=== PATIENT | male | born 1950 | race Hispanic/Latino ===

== ENCOUNTER 2018-08-02 16:30 | Emergency (ER) | payer OTHER, SELFPAY ==
--- NOTE | 2018-08-02 17:22 | RAD REPORT ---
EXAM DESCRIPTION: RAD - Wrist Right 3 View - 08/02/2018 5:11 pm CLINICAL HISTORY: Right wrist pain status post injury FINDINGS: Bony density along the dorsal aspect of the wrist has a sclerotic border and probably is c hronic. No acute fracture or dislocation seen. Calcification of the triangular fibrocartilage Multiple small radiopaque foreign bodies are present within predominantly the medial aspect of the wr ist. If the patient continues to have symptoms to suggest an occult fracture then a followup plain film se renee in 7 days would be recommended.
--- NOTE | 2018-08-02 17:32 | EDPHYS ---
Physician Documentation [facility] Name: Nick Delgado Age: 68 yrs Sex: Male : 1950 Arrival Date: 08/02/2018 Time: 16:33 Bed 30 Private MD: ED Physician Kameron Alvarenga HPI: 08/02 17:37 This 68 yrs old Male presents to ER via Ambulatory with complaints of Wrist snw Injury. 17:37 The patient or guardian reports a contusion, swelling, tenderness. The complaints snw affect the right wrist diffusely. Context: The problem was sustained at a [employer], resulted from a direct blow, by a heavy object, Lumber. Historical: - Allergies: 16:37 No Known Allergies; sv - PMHx: 16:37 None; sv - PSHx: 16:37 back; sv - Immunization history:: Adult Immunizations not up to date, Last tetanus immunization: unknown. - Social history:: Smoking status: unknown. - Ebola Screening: : Patient negative for fever greater than or equal to 101.5 degrees Fahrenheit, and additional compatible Ebola Virus Disease symptoms Patient denies exposure to infectious person Patient denies travel to an Ebola-affected area in the 21 days before illness onset. ROS: 17:33 Constitutional: Negative for fever, chills, and weight loss, Eyes: Negative for injury, snw pain, redness, and discharge, ENT: Negative for injury, pain, and discharge, Neck: Negative for injury, pain, and swelling, Cardiovascular: Negative for chest pain, palpitations, and edema, Respiratory: Negative for shortness of breath, cough, wheezing, and pleuritic chest pain, Abdomen/GI: Negative for abdominal pain, nausea, vomiting, diarrhea, and constipation, Back: Negative for injury and pain, : Negative for injury, bleeding, discharge, and swelling, Skin: Negative for injury, rash, and discoloration, Neuro: Negative for headache, weakness, numbness, tingling, and seizure. 17:33 MS/extremity: Positive for contusion, ecchymosis, pain, of the lateral right wrist. Exam: 17:35 Constitutional: This is a well developed, well nourished patient who is awake, alert, snw and in no acute distress. Head/Face: Normocephalic, atraumatic. Eyes: Pupils equal round and reactive to light, extra-ocular motions intact. Lids and lashes normal. Conjunctiva and sclera are non-icteric and not injected. Cornea within normal limits. Periorbital areas with no swelling, redness, or edema. ENT: Nares patent. No nasal discharge, no septal abnormalities noted. Tympanic membranes are normal and external auditory canals are clear. Oropharynx with no redness, swelling, or masses, exudates, or evidence of obstruction, uvula midline. Mucous membranes moist. Neck: Trachea midline, no thyromegaly or masses palpated, and no cervical lymphadenopathy. Supple, full range of motion without nuchal rigidity, or vertebral point tenderness. No Meningismus. Chest/axilla: Normal chest wall appearance and motion. Nontender with no deformity. No lesions are appreciated. Cardiovascular: Regular rate and rhythm with a normal S1 and S2. No gallops, murmurs, or rubs. Normal PMI, no JVD. No pulse deficits. Respiratory: Lungs have equal breath sounds bilaterally, clear to auscultation and percussion. No rales, rhonchi or wheezes noted. No increased work of breathing, no retractions or nasal flaring. Abdomen/GI: Soft, non-tender, with normal bowel sounds. No distension or tympany. No guarding or rebound. No evidence of tenderness throughout. Back: No spinal tenderness. No costovertebral tenderness. Full range of motion. Skin: Warm, dry with normal turgor. Normal color with no rashes, no lesions, and no evidence of cellulitis. Neuro: Awake and alert, GCS 15, oriented to person, place, time, and situation. Cranial nerves II-XII grossly intact. Motor strength 5/5 in all extremities. Sensory grossly intact. Cerebellar exam normal. Normal gait. Psych: Awake, alert, with orientation to person, place and time. Behavior, mood, and affect are within normal limits. 17:35 Musculoskeletal/extremity: Extremities: grossly normal except: noted in the lateral right wrist: contusion, ecchymosis, Circulation is intact in all extremities. Pulses: are normal with no appreciated deficits, Sensation intact. Vital Signs: 16:37 BP 132 / 89; Pulse 77; Resp 16; Temp 98.5; Pulse Ox 100% ; Weight 83.91 kg; Height 5 sv ft. 7 in. (170.18 cm); Pain 7/10; 16:37 Body Mass Index 28.97 (83.91 kg, 170.18 cm) sv MDM: 16:55 Patient medically screened. snw 17:33 Data reviewed: vital signs, nurses notes. Data interpreted: Pulse oximetry: on room air snw is 100 %. Interpretation: normal. Counseling: I had a detailed discussion with the patient and/or guardian regarding: the historical points, exam findings, and any diagnostic results supporting the discharge/admit diagnosis, the presence of at least one elevated blood pressure reading (>120/80) during this emergency department visit, the need for outpatient follow up, to return to the emergency department if symptoms worsen or persist or if there are any questions or concerns that arise at home. Special discussion: I have referred the patient to see his PCP for further evaluation of high blood pressure. Based on the history and exam findings, there is no indication for further emergent testing or inpatient evaluation. I discussed with the patient/guardian the need to see the orthopedic surgeon for further evaluation of the symptoms. I discussed with the patient/guardian the need to see the primary care provider for further evaluation of the symptoms. 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 Exp: rv 07/04/2020. Lot #: [id number]. } Route: IM; Site: right deltoid; 18:00 Follow up: Response: Medication administered at discharge. rv Disposition: 08/02/18 17:30 Discharged to Home. Impression: Pain in right wrist, Contusion of right wrist. - Condition is Stable. - Discharge Instructions: Musculoskeletal Pain, Wrist Pain, VIS, Tetanus, Diphtheria (Td) - CDC, Cryotherapy, Heat Therapy. - Prescriptions for Diclofenac Sodium 75 mg Oral Tablet Sustained Release - take 1 tablet by ORAL route 2 times per day; 30 tablet. - Medication Reconciliation Form, Thank You Letter, Antibiotic Education, Prescription Opioid Use form. - Follow up: Private Physician; When: 2 - 3 days; Reason: Recheck today's complaints, Continuance of care, Re-evaluation by your physician. Follow up: Emergency Department; When: As needed; Reason: Worsening of condition. Addendum: 08/05/2018 07:12 Co-signature as Attending Physician, Kameron Alvarenga MD I agree with the assessment and c romo plan of care. Signatures: Dispatcher [employer] Dinorah Alanis, RN RN Kameron Berry MD MD cha Therrien, Shelly, B2B ACCOUNT EXECUTIVE-C B2B ACCOUNT EXECUTIVE-Csnw Jostin Ch, RN RN rv Corrections: (The following items were deleted from the chart) 08/02 17:39 17:37 Context: The problem was sustained at a [employer], resulted from a direct blow, snw by a heavy object, Lumbar, snw 18:03 17:30 08/02/2018 17:30 Discharged to Home. Impression: Pain in right wrist; Contusion rv of right wrist. Condition is Stable. Forms are Medication Reconciliation Form, Thank You Letter, Antibiotic Education, Prescription Opioid Use. Follow up: Private Physician; When: 2 - 3 days; Reason: Recheck today's complaints, Continuance of care, Re-evaluation by your physician. Follow up: Emergency Department; When: As needed; Reason: Worsening of condition. snw
--- NOTE | 2018-08-02 17:32 | ER ---
Nurse's Notes [facility] Name: Nick Delgado Age: 68 yrs Sex: Male : 1950 Arrival Date: 08/02/2018 Time: 16:33 Bed 30 Private MD: Diagnosis: Pain in right wrist;Contusion of right wrist Presentation: 08/02 16:35 Presenting complaint: Patient states: right wrist pain x 1 day. Reports that a 2x2 sv piece of wood "snapped and banged on my right wrist." Pt has a dark purple bruise noted to that area. Transition of care: patient was not received from another setting of care. Onset of symptoms was August 01, 2018. Care prior to arrival: None. 16:35 Method Of Arrival: Ambulatory sv 16:35 Acuity: KYLER 4 sv 18:03 Risk Assessment: Do you want to hurt yourself or someone else? Patient reports no rv desire to harm self or others. Initial Sepsis Screen: Does the patient meet any 2 criteria? No. Patient's initial sepsis screen is negative. Does the patient have a suspected source of infection? No. Patient's initial sepsis screen is negative. Triage Assessment: 16:38 General: Appears in no apparent distress. comfortable, Behavior is calm, cooperative, sv appropriate for age. Pain: Complains of pain in right wrist. Neuro: Level of Consciousness is awake, alert, obeys commands, Oriented to person, place, time, situation, Gait is steady. Respiratory: Respiratory effort is even, unlabored, Respiratory pattern is regular, symmetrical. Historical: - Allergies: 16:37 No Known Allergies; sv - PMHx: 16:37 None; sv - PSHx: 16:37 back; sv - Immunization history:: Adult Immunizations not up to date, Last tetanus immunization: unknown. - Social history:: Smoking status: unknown. - Ebola Screening: : Patient negative for fever greater than or equal to 101.5 degrees Fahrenheit, and additional compatible Ebola Virus Disease symptoms Patient denies exposure to infectious person Patient denies travel to an Ebola-affected area in the 21 days before illness onset. Screenin:02 Abuse screen: Denies threats or abuse. Denies injuries from another. Nutritional rv screening: No deficits noted. Tuberculosis screening: No symptoms or risk factors identified. Fall Risk None identified. Assessment: 18:01 General: Appears in no apparent distress. comfortable, Behavior is calm, cooperative. rv Pain: Complains of pain in right wrist. Neuro: Level of Consciousness is awake, alert, obeys commands, Oriented to person, place, time, situation. Cardiovascular: Capillary refill < 3 seconds. Respiratory: Airway is patent. GI: No signs and/or symptoms were reported involving the gastrointestinal system. : No signs and/or symptoms were reported regarding the genitourinary system. EENT: No signs and/or symptoms were reported regarding the EENT system. Derm: Wound noted right wrist. Musculoskeletal: Reports pain in right wrist. Vital Signs: 16:37 BP 132 / 89; Pulse 77; Resp 16; Temp 98.5; Pulse Ox 100% ; Weight 83.91 kg; Height 5 sv ft. 7 in. (170.18 cm); Pain 7/10; 16:37 Body Mass Index 28.97 (83.91 kg, 170.18 cm) sv ED Course: 16:33 Patient arrived in ED. mr 16:37 Triage completed. sv 16:38 Arm band placed on. sv 16:55 Macy Nguyen FNP-C is PHCP. snw 16:55 Kameron Alvarenga MD is Attending Physician. snw 16:57 X-ray completed. Portable x-ray completed in exam room. Patient tolerated procedure ml well. 16:58 Wrist Right 3 View XRAY In Process Unspecified. EDMS 18:02 No provider procedures requiring assistance completed. Patient did not have IV access rv during this emergency room visit. 18:03 Patient has correct armband on for positive identification. Bed in low position. Call rv light in reach. Side rails up X 1. Pulse ox on. NIBP on. 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 Exp: rv 07/04/2020. Lot #: [id number]. } Route: IM; Site: right deltoid; 18:00 Follow up: Response: Medication administered at discharge. rv Outcome: 17:30 Discharge ordered by . snw 18:02 Discharged to home ambulatory. rv 18:02 Condition: good 18:02 Discharge instructions given to patient, Instructed on discharge instructions, follow up and referral plans. medication usage, Demonstrated understanding of instructions, follow-up care, medications, Prescriptions given X 1. 18:03 Patient left the ED. rv Signatures: Dispatcher [employer] Dinorah Aalnis RN RN sv Macy Nguyen, DAIRY HUSBANDRY WORKER-C DAIRY HUSBANDRY WORKER-Naomiw Fay Bear Tre, Jostin Johnson RN RN rv Corrections: (The following items were deleted from the chart) 16:39 16:37 Pulse 77bpm; Resp 16bpm; Pulse Ox 100%; Temp 98.5F; 83.91 kg; Height 5 ft. 7 in.; sv BMI: 28.9; Pain 7/10; sv
[2018-08-02] MEDS ORDERED: TETANUS & DIPHTHERIA TOX,ADULT 0.5 ML VIAL ONE (17:36)
== END 2018-08-02 18:03 | disposition home or self-care (01) ==
LOC: ER 16:30
DX: S60.211A Contusion of right wrist, initial encounter (principal); W22.8XXA Striking against or struck by other objects, initial encounter; Y92.512 Supermarket, store or market as the place of occurrence of the external cause
CPT/HCPCS: 90714; 99284

== ENCOUNTER 2020-11-14 08:33 | Emergency (ER) | payer MEDICARE, SELFPAY ==
[2020-11-14] MEDS ORDERED: HYDROCODONE/APAP 5/325 MG TAB ONE (09:35)
--- NOTE | 2020-11-14 09:45 | ER ---
Nurse's Notes [facility] Name: Nick Delgado Age: 70 yrs Sex: Male : 1950 Arrival Date: 11/14/2020 Time: 08:37 Bed 20 Private MD: Stan Moody T Diagnosis: Displaced fracture of shaft of left fibula Presentation: 11/14 08:56 Chief complaint: Patient states: Tripped at work and hurt is left leg and left ankle. rb3 08:56 Coronavirus screen: At this time, the client does not indicate any symptoms associated rb3 with coronavirus-19. Ebola Screen: Patient denies travel to an Ebola-affected area in the 21 days before illness onset. Initial Sepsis Screen: Does the patient meet any 2 criteria? No. Patient's initial sepsis screen is negative. Does the patient have a suspected source of infection? No. Patient's initial sepsis screen is negative. Risk Assessment: Do you want to hurt yourself or someone else? Patient reports no desire to harm self or others. Onset of symptoms was November 10, 2020. 08:56 Method Of Arrival: Wheelchair rb3 08:56 Acuity: KYLER 3 rb3 Triage Assessment: 08:56 General: Appears uncomfortable, Behavior is calm, cooperative. Pain: Complains of pain rb3 in lateral aspect of left calf Pain currently is 10 out of 10 on a pain scale. Pain began 3-4 days ago Aggravated by weight bearing. Neuro: Level of Consciousness is awake, alert, obeys commands, Oriented to person, place, time, situation. Cardiovascular: Patient's skin is warm and dry. Pulses are palpable in left foot. Respiratory: Airway is patent Respiratory effort is even, unlabored, Respiratory pattern is regular, symmetrical. GI: No signs and/or symptoms were reported involving the gastrointestinal system. : No signs and/or symptoms were reported regarding the genitourinary system. Musculoskeletal: Swelling present in left ankle. Historical: - Allergies: 08:56 No Known Allergies; rb3 - Home Meds: 08:56 unknown BP med [Active]; rb3 - PMHx: 08:56 Hypertension; rb3 - PSHx: 08:56 back; Appendectomy; rb3 - Immunization history:: Adult Immunizations up to date. - Social history:: Smoking status: Patient/guardian denies using. Screenin:56 Abuse screen: Denies threats or abuse. Nutritional screening: No deficits noted. rb3 Tuberculosis screening: No symptoms or risk factors identified. Fall Risk None identified. Assessment: 08:56 General: See triage assessment. rb3 09:55 Reassessment: Patient appears in no apparent distress at this time. Patient and/or rb3 family updated on plan of care and expected duration. Pain level reassessed. Patient is alert, oriented x 3, equal unlabored respirations, skin warm/dry/pink. 10:38 Reassessment: Patient appears in no apparent distress at this time. No changes from rb3 previously documented assessment. Vital Signs: 08:56 BP 175 / 93; Pulse 74; Resp 19; Temp 98.9; Pulse Ox 100% ; Weight 74.84 kg; Height 5 rb3 ft. 7 in. (170.18 cm); Pain 10/10; 10:38 BP 155 / 88; Pulse 71; Resp 19; Pulse Ox 99% ; rb3 08:56 Body Mass Index 25.84 (74.84 kg, 170.18 cm) rb3 ED Course: 08:37 Patient arrived in ED. am2 08:37 Stan Moody MD is Private Physician. am2 08:56 Bria Nash, RN is Primary Nurse. rb3 08:56 Arm band placed on right wrist. rb3 08:56 Patient has correct armband on for positive identification. Bed in low position. Call rb3 light in reach. Side rails up X 1. Pulse ox on. NIBP on. 08:58 Cally Baum FNP-C is [facility]. kb 08:58 Kameron Alvarenga MD is Attending Physician. kb 09:06 Triage completed. rb3 09:39 Tib Fib Left XRAY In Process Unspecified. EDMS 10:31 Orthoglass splint: Posterior short lleg splint applied on left leg. capillary refill <3 dh3 seconds. Viewed by Bailey Baum NP. 10:47 No provider procedures requiring assistance completed. Patient did not have IV access rb3 during this emergency room visit. Administered Medications: 09:15 Drug: [place] (HYDROcodone-acetaminophen) 5 mg-325 mg 1 tabs Route: PO; rb3 09:45 Follow up: Response: No adverse reaction; Pain is decreased rb3 Outcome: 09:44 Discharge ordered by . kb 10:47 Patient left the ED. iw 10:47 Discharged to home via wheelchair, with crutches, with family. rb3 10:47 Condition: stable 10:47 Discharge instructions given to patient, Instructed on discharge instructions, follow rb3 up and referral plans. medication usage, Demonstrated understanding of instructions, follow-up care, medications, Prescriptions given X 1. Signatures: Dispatcher [employer] EDCally Blackwood, TOBACCO WAREHOUSE AGENT-C TOBACCO WAREHOUSE AGENT-Maria Elena Wallace, RN RN iw Anika Quintanilla Deanna 3 Bria Nash, RN RN rb3
--- NOTE | 2020-11-14 09:45 | EDPHYS ---
Physician Documentation [facility] Name: Nick Delgado Age: 70 yrs Sex: Male : 1950 Arrival Date: 11/14/2020 Time: 08:37 Bed 20 Private MD: Stan Moody T ED Physician Kameron Alvarenga HPI: 11/14 09:03 This 70 yrs old Male presents to ER via Unassigned with complaints of Leg Pain.kb 09:03 The patient presents with pain, that is acute, swelling, tenderness. The complaints kb affect the lateral aspect of left calf. Context: The problem was sustained at work, resulted from the patient falling, the patient can fully bear weight, the patient is able to ambulate, Problem is a result from a previous injury: No. Onset: The symptoms/episode began/occurred 3 day(s) ago. Modifying factors: The symptoms are alleviated by nothing. the symptoms are aggravated by movement. Associated signs and symptoms: Pertinent positives: swelling, Pertinent negatives calf tenderness, fever, nausea, numbness, rash, tingling, vomiting, warmth, weakness. Treatment prior to arrival includes: no previous treatment. Severity of symptoms: At their worst the symptoms were mild, moderate, in the emergency department the symptoms are unchanged. The patient has not experienced similar symptoms in the past. The patient has not recently seen a physician. Pt reports he fell at work 3-4 days ago and hit his left lateral lower leg on a piece of furniture. States he has been able to walk, but is still having pain to the area he hit. States pain worse with flexion of foot. Cap refill and pulses wnl. . Historical: - Allergies: 08:56 No Known Allergies; rb3 - Home Meds: 08:56 unknown BP med [Active]; rb3 - PMHx: 08:56 Hypertension; rb3 - PSHx: 08:56 back; Appendectomy; rb3 - Immunization history:: Adult Immunizations up to date. - Social history:: Smoking status: Patient/guardian denies using. ROS: 09:40 Constitutional: Negative for fever, chills, and weight loss, Respiratory: Negative for kb shortness of breath, cough, wheezing, and pleuritic chest pain, Skin: Negative for injury, rash, and discoloration, Neuro: Negative for headache, weakness, numbness, tingling, and seizure. 09:40 MS/extremity: Positive for pain, swelling, tenderness, of the lateral aspect of left calf, Negative for abrasion, bite, contusion, decreased range of motion, deformity, ecchymosis, erythema, laceration, paresthesias, puncture, rash, tingling, warmth. Exam: 09:40 Constitutional: This is a well developed, well nourished patient who is awake, alert, kb and in no acute distress. Head/Face: Normocephalic, atraumatic. ENT: Moist Mucous membranes Respiratory: Respirations even and unlabored. No increased work of breathing, no retractions or nasal flaring. Skin: Warm, dry with normal turgor. Normal color. Neuro: Awake and alert, GCS 15, oriented to person, place, time, and situation. Moves all extremities. Normal gait. Psych: Awake, alert, with orientation to person, place and time. Behavior, mood, and affect are within normal limits. 09:40 Musculoskeletal/extremity: Extremities: grossly normal except: noted in the lateral aspect of left calf: pain, swelling, tenderness, ROM: intact in all extremities, Circulation is intact in all extremities. Sensation intact. Weight bearing: able to fully bear weight. Vital Signs: 08:56 BP 175 / 93; Pulse 74; Resp 19; Temp 98.9; Pulse Ox 100% ; Weight 74.84 kg; Height 5 rb3 ft. 7 in. (170.18 cm); Pain 10/10; 10:38 BP 155 / 88; Pulse 71; Resp 19; Pulse Ox 99% ; rb3 08:56 Body Mass Index 25.84 (74.84 kg, 170.18 cm) rb3 MDM: 09:02 Patient medically screened. [facility] 09:03 Data reviewed: vital signs, nurses notes. Data interpreted: Pulse oximetry: on room air kb is 100 %. Interpretation: normal. 09:38 Counseling: I had a detailed discussion with the patient and/or guardian regarding: the kb historical points, exam findings, and any diagnostic results supporting the discharge/admit diagnosis, radiology results, the need for outpatient follow up, a orthopedic surgeon, to return to the emergency department if symptoms worsen or persist or if there are any questions or concerns that arise at home. 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 No prescription history. kb 11/14 09:02 Order name: Tib Fib Left XRAY kb 11/14 09:38 Order name: Short Leg Splint; Complete Time: 10:32 kb 11/14 09:38 Order name: Crutches; Complete Time: 10:32 kb Administered Medications: 09:15 Drug: [place] (HYDROcodone-acetaminophen) 5 mg-325 mg 1 tabs Route: PO; rb3 09:45 Follow up: Response: No adverse reaction; Pain is decreased rb3 Disposition: 11/14/20 09:44 Discharged to Home. Impression: Displaced fracture of shaft of left fibula. - Condition is Stable. - Discharge Instructions: Fibular Ankle Fracture Treated With or Without Immobilization, Adult, Displaced Fibular Ankle Fracture Treated With Open Reduction, Adult. - Prescriptions for Tramadol 50 mg Oral Tablet - take 1 tablet by ORAL route every 8 hours as needed; 12 tablet. - Medication Reconciliation Form, Thank You Letter, Antibiotic Education, Prescription Opioid Use form. - Follow up: Private Physician; When: 2 - 3 days; Reason: Recheck today's complaints, Continuance of care, Re-evaluation by your physician. Follow up: Emergency Department; When: As needed; Reason: Worsening of condition. Signatures: Dispatcher [employer] EDMD Cally Baum, SUPERVISOR WATERWORKS-C SUPERVISOR WATERWORKS-Ckb Kameron Alvarenga MD MD cha Williams, Irene, RN RN Bria Key RN RN rb3 Corrections: (The following items were deleted from the chart) 10:16 09:14 Extremity Venous [email or web address] ordered. [facility] EDMD 10:47 09:44 11/14/2020 09:44 Discharged to Home. Impression: Displaced fracture of shaft of iw left fibula. Condition is Stable. Forms are Medication Reconciliation Form, Thank You Letter, Antibiotic Education, Prescription Opioid Use. Follow up: Private Physician; When: 2 - 3 days; Reason: Recheck today's complaints, Continuance of care, Re-evaluation by your physician. Follow up: Emergency Department; When: As needed; Reason: Worsening of condition. kb
[2020-11-14 10:53] VITALS: BP 175/93; TEMP 98.9; O2SAT 100
--- NOTE | 2020-11-14 11:18 | RAD REPORT ---
EXAM DESCRIPTION: Laly Haines Left11/14/2020 9:39 am CLINICAL HISTORY: Left leg pain status post injury FINDINGS: A mildly displaced fracture involves the proximal diaphysis of the fibula. Cortical irregularity and lucency involves the distal proximal tibia extending intraarticularly presu mably a fracture. Chondrocalcinosis is present
== END 2020-11-14 10:47 | disposition home or self-care (01) ==
LOC: ER 08:33
PROC: 2W3RX1Z Immobilization of Left Lower Leg using Splint (ICD-10-PCS; principal; 2020-11-14)
DX: S82.402A Unspecified fracture of shaft of left fibula, initial encounter for closed fracture (principal); I10 Essential (primary) hypertension; W01.190A Fall on same level from slipping, tripping and stumbling with subsequent striking against furniture, initial encounter; Y99.0 Civilian activity done for income or pay
CPT/HCPCS: 99284

== ENCOUNTER 2021-08-30 15:56 | Emergency (ER) | payer MEDICARE, SELFPAY ==
--- OUTSIDE RECORDS SUMMARY | 2021-08-30 15:59 | XMS REPORT | Continuity of Care Document ---
:[address] [facility] [place] [place] Address [address] [place] [address] Care Team Providers Name Role Phone ISABELLA VELEZ Primary Care Physician Unavailable Hossein DELUNA L Attending Clinician Etienne KELLER Attending Clinician Unavailable Arianna AUSTIN, S Attending Clinician Valerie CATALAN Attending Clinician Unavailable Abi GUZMAN Attending Clinician Unavailable Payers Payer Name Policy Type Policy Number Effective Date Expiration Date S [employer] [id number] 2021 (MEDICARE 00:00:00 REPLACEMENT HMO) Problems Condition Condition Condition Status Onset Resolution Last Treating Co mments Source Name Details Category Date Date Treatment Clinician Date No known No known Disease Unive rs active active ity of problems problems [facility] Allergies, Adverse Reactions, Alerts Allergy Allergy Status Severity Reaction(s) Onset Inactive Treating Comm ents Source Name Type Date Date Clinician NO KNOWN Drug Active Univers ALLERGIE Class ity of S [facility] Social History Social Habit Start Date Stop Date Quantity Comments Source History SDOH University o f Alcohol Frequency [place] [facility] History SDOH University o f Alcohol Std [place] Medical Drinks Branch History SDOH University o f Alcohol Binge [place] [facility] al Branch Exposure to Not sure University of SARS-CoV-2 [facility] (event) Branch Alcohol intake 2021-02-17 2021-02-17 Current drinker Unive rsity of 00:00:00 00:00:00 of alcohol [facility] (finding) Branch Tobacco use and 2020-11-25 2020-11-25 Never used Universit y of exposure 00:00:00 00:00:00 [facility] Alcohol Comment 2020-11-25 2020-11-25 socially Universit y of 00:00:00 00:00:00 [facility] Sex Ass[birth year] [facility] y of 00:00:00 00:00:00 [facility] Smoking Status Start Date Stop Date Source Never smoker [facility] Medications Ordered Filled Start Stop Current Ordering Indication Dosage Frequency Signature Comments Components Source Medication Medication Date Date Medication? Clinician (SIG) Name Name cyclobenzap Yes TAKE 1 Univ ers rine 10 mg 7-01 TABLET BY ity of tablet 00:00: MOUTH AT [place] [address] BEDTIME Medical NEEDED Branch etodolac Yes 400mg Take 400 Univ ers 400 mg 7-01 mg by ity of tablet 00:00: mouth 2 [place] (two) Medical times Branch daily with meals. cyclobenzap Yes TAKE 1 Univ ers rine 10 mg 7-01 TABLET BY ity of tablet 00:00: MOUTH AT [place] BEDTIME Medical NEEDED Branch etodolac Yes 400mg Take 400 Univ ers 400 mg 7-01 mg by ity of tablet 00:00: mouth 2 [place] (two) Medical times Branch daily with meals. traMADoL 50 Yes TAKE 1 Univ ers mg tablet 6-27 TABLET BY ity o f 00:00: MOUTH 00 EVERY 8 Medical HOURS Branch NEEDED traMADoL 50 Yes TAKE 1 Univ ers mg tablet 6-27 TABLET BY ity o f 00:00: MOUTH [place] EVERY 8 Medical HOURS Branch NEEDED tadalafiL Yes TAKE ONE Univ ers 20 mg 6-11 (1) ity of tablet 00:00: TABLET(S) 00 BY MOUTH Medical ONCE A DAY Branch NEEDED. tadalafiL Yes TAKE ONE Univ ers 20 mg 6-11 (1) ity of tablet 00:00: TABLET(S) BY MOUTH Medical ONCE A DAY Branch NEEDED. amLODIPine Yes 5mg Take 5 mg Un jeison 5 mg tablet 4-28 by mouth ity of 00:00: every [place] 00 morning. Medical Branch lisinopriL- Yes 1{tbl} Take 1 Un jesion hydrochloro 4-28 tablet by ity of thiazide 00:00: mouth [place] 20-12.5 mg 00 every Medical per tablet morning. [facility] rosuvastati 0 Yes 5mg Take 5 mg U nivers n 5 mg 4-28 by mouth ity of tablet 00:00: every [place] 00 evening. Medical Branch amLODIPine 0 Yes 5mg Take 5 mg Un jeison 5 mg tablet 4-28 by mouth ity of 00:00: every [place] 00 morning. Medical Branch lisinopriL- 0 Yes 1{tbl} Take 1 Un jeison hydrochloro 4-28 tablet by ity of thiazide 00:00: mouth [place] 20-12.5 mg 00 every Medical per tablet morning. [facility] rosuvastati 0 Yes 5mg Take 5 mg U nivers n 5 mg 4-28 by mouth ity of tablet 00:00: every [place] 00 evening. Medical Branch metFORMIN 0 Yes 500mg Take 500 Uni vers 500 mg 4-19 mg by ity of tablet 00:00: mouth 00 daily. Medical Branch pravastatin 0 Yes 20mg Take 20 mg Univers 20 mg 4-19 by mouth ity of tablet 00:00: daily. Medical Branch metFORMIN 0 Yes 500mg Take 500 Uni vers 500 mg 4-19 mg by ity of tablet 00:00: mouth 00 daily. Medical Branch pravastatin 0 Yes 20mg Take 20 mg Univers 20 mg 4-19 by mouth ity of tablet 00:00: daily. Medical [place] Immunizations Ordered Filled Immunization Date Status Comments [facility] e Immunization Name Name SARS-COV-2 COVID-19 2020-08-15 Completed Unive rsity of MODERNA VACCINE 00:00:00 [facility] SARS-COV-2 COVID-19 2020-08-15 Completed Unive rsity of MODERNA VACCINE 00:00:00 [facility] SARS-COV-2 COVID-19 2020-07-18 Completed Unive rsity of MODERNA VACCINE 00:00:00 [facility] SARS-COV-2 COVID-19 2020-07-18 Completed Unive rsity of MODERNA VACCINE 00:00:00 [facility] Vital Signs Vital Name Observation Time Observation Value Comments Source Systolic blood 2021-02-17 14:19:00 158 mm[Hg] [facility] [place] Diastolic blood 2021-02-17 14:19:00 81 mm[Hg] [facility] Heart rate 2021-02-17 14:19:00 68 /min [facility] Body height 2021-02-17 14:19:00 170.2 cm [facility] Body weight 2021-02-17 14:19:00 77.111 kg [facility] BMI 2021-02-17 14:19:00 26.63 kg/m2 [facility] Procedures Procedure Date / Time Performed Performing Clinician Sourc e XR TIBIA FIBULA 2 VW 2021-02-17 14:29:56 Tamia Catalan [facility] Encounters Start End Encounter Admission Attending Care Care Encounter Source Date/Time Date/Time Type Type Clinicians Facility Department ID 2021-06-28 2021-06-28 Outpatient [facility] [id number] [facility] 08:00:00 08:00:00 [id number] [facility] l [facility] 2021-04-03 2021-04-03 Outpatient [facility] [id number] [facility] 12:00:00 12:00:00 [id number] Medica l Group 2021-02-17 2021-02-17 [facility] [id number] Univers 09:15:00 23:59:00 Encounter Tamia Padilla [facility] [id number] [facility] [id number] Toney as Ney?Blea [id number] [facility] [address] [place] [facility] 2021-02-17 2021-02-17 Outpatient Tiana KELLER [facility] [id number] Univers 09:30:00 09:30:00 ALBERT [id number] [facility] [place] [facility] 2021-02-17 2021-02-17 Outpatient Tiana KELLER [facility] [id number] Univers 09:30:00 09:30:00 ALBERT [facility] 2021-02-17 2021-02-17 [facility] [id number] Univers 09:11:31 09:26:31 Visit [facility] [id number] it y of [place] [id number] Toney as Ney?Blea [id number] [facility] [address] Medical Office Building 2021-01-06 2021-01-06 Outpatient Tiana CATALAN [facility] [id number] Univers 10:15:00 23:59:00 TAMIA [facility] 2021-01-06 2021-01-06 [facility] [id number] Univers 10:15:00 10:15:00 ALBERT [id number] [facility] 2020-11-25 2020-11-25 Outpatient ARIANNA [facility] [id number] Univers 14:08:07 23:59:00 [facility] 2020-11-25 2020-11-25 Outpatient Tiana KELLER [facility] [id number] Univers 14:00:00 14:00:00 [facility] 2020-08-15 2020-08-15 Outpatient Tiana GUZMAN [facility] [id number] Univers 12:00:00 12:00:00 NICHELLE [facility] 2020-07-18 2020-07-18 Outpatient Tiana GUZMAN [facility] [id number] Univers 11:45:00 11:45:00 [facility] Results This patient has no known results.
[2021-08-30 16:33] LABS: Absolute Lymphocytes (CBC) 1.1 K/uL (0.7-4.9); Hematocrit 44.6 % (39.6-49.0); Lymphocytes % 21.7 % (15.3-44.8); MPV 7.5 fL (7.6-11.3); RBC Red Blood Cell Count 5.38 M/uL (4.33-5.43)
[2021-08-30 16:39] LABS: Protime INR 0.95
[2021-08-30] MEDS ORDERED: LEVETIRACETAM 500 MG/5 ML VIAL IV ONE (16:48)
[2021-08-30] MEDS ORDERED: NA CHLORIDE 0.9% 50 ML ONE (16:49)
--- NOTE | 2021-08-30 16:49 | EDPHYS ---
Physician Documentation [facility] Name: Nick Delgado Age: 71 yrs Sex: Male : 1950 Arrival Date: 08/30/2021 Time: 15:57 Bed 2 Private MD: ED Physician Kameron Alvarenga HPI: 08/30 16:18 This 71 yrs old Male presents to ER via EMS with complaints of Fall Injury, gareth Trauma Complaint. Historical: - Allergies: 16:06 No Known Allergies; ss - PMHx: 16:06 Hypertension; ss - Immunization history:: Client reports receiving the 2nd dose of the Covid vaccine. - Social history:: Smoking status: Patient denies any tobacco usage or history of. - Immunization history: Last tetanus immunization: unknown. ROS: 16:20 Constitutional: Negative for fever, chills, and weight loss, ENT: Negative for injury, gareth pain, and discharge, Neck: Negative for injury, pain, and swelling, Cardiovascular: Negative for chest pain, palpitations, and edema, Respiratory: Negative for shortness of breath, cough, wheezing, and pleuritic chest pain, Abdomen/GI: Negative for abdominal pain, nausea, vomiting, diarrhea, and constipation, Back: Negative for injury and pain, : Negative for injury, bleeding, discharge, and swelling, Neuro: Negative for headache, weakness, numbness, tingling, and seizure, Psych: Negative for depression, anxiety, suicide ideation, homicidal ideation, and hallucinations, Allergy/Immunology: Negative for hives, rash, and allergies, Endocrine: Negative for neck swelling, polydipsia, polyuria, polyphagia, and marked weight changes, Hematologic/Lymphatic: Negative for swollen nodes, abnormal bleeding, and unusual bruising. 16:20 Eyes: Positive for injury or acute deformity, pain, swelling. 16:20 MS/extremity: Positive for decreased range of motion, pain, swelling, tenderness, of the dorsum of right hand. Exam: 16:20 Constitutional: This is a well developed, well nourished patient who is awake, alert, gareth and in no acute distress. Eyes: Pupils equal round and reactive to light, extra-ocular motions intact. Lids and lashes normal. Conjunctiva and sclera are non-icteric and not injected. Cornea within normal limits. Periorbital areas with no swelling, redness, or edema. ENT: Nares patent. No nasal discharge, no septal abnormalities noted. Tympanic membranes are normal and external auditory canals are clear. Oropharynx with no redness, swelling, or masses, exudates, or evidence of obstruction, uvula midline. Mucous membranes moist. Neck: Trachea midline, no thyromegaly or masses palpated, and no cervical lymphadenopathy. Supple, full range of motion without nuchal rigidity, or vertebral point tenderness. No Meningismus. Chest/axilla: Normal chest wall appearance and motion. Nontender with no deformity. No lesions are appreciated. Cardiovascular: Regular rate and rhythm with a normal S1 and S2. No gallops, murmurs, or rubs. Normal PMI, no JVD. No pulse deficits. Respiratory: Lungs have equal breath sounds bilaterally, clear to auscultation and percussion. No rales, rhonchi or wheezes noted. No increased work of breathing, no retractions or nasal flaring. Abdomen/GI: Soft, non-tender, with normal bowel sounds. No distension or tympany. No guarding or rebound. No evidence of tenderness throughout. Back: No spinal tenderness. No costovertebral tenderness. Full range of motion. Male : Normal genitalia with no discharge or lesions. Psych: Awake, alert, with orientation to person, place and time. Behavior, mood, and affect are within normal limits. 16:20 Head/face: Noted is contusion, deformity, ecchymosis, erythema, a laceration(s), swelling, that is moderate, of the forehead and right eye, Sinus tenderness, is not appreciated. 17:55 ECG was reviewed by the Attending Physician. [facility] Vital Signs: 15:49 Resp 17; Weight 79.38 kg; Height 5 ft. 7 in. (170.18 cm); Pain 0/10; ss 15:49 BP 201 / 96; Pulse 78; Resp 15; Temp 98.1; Pulse Ox 98% ; jl7 16:45 BP 214 / 103; Pulse 75; Resp 16 S; Pulse Ox 99% on R/A; jl7 17:30 BP 180 / 90; Pulse 72; Resp 15; Pulse Ox 97% ; jl7 18:10 BP 170 / 96; Pulse 70; Resp 15; Pulse Ox 98% ; jl7 15:49 Body Mass Index 27.41 (79.38 kg, 170.18 cm) ss Job Coma Score: 15:49 Eye Response: spontaneous(4). Verbal Response: oriented(5). Motor Response: obeys ss commands(6). Total: 15. 16:45 Eye Response: spontaneous(4). Verbal Response: oriented(5). Motor Response: obeys jl7 commands(6). Total: 15. 17:30 Eye Response: spontaneous(4). Verbal Response: oriented(5). Motor Response: obeys jl7 commands(6). Total: 15. 18:10 Eye Response: spontaneous(4). Verbal Response: oriented(5). Motor Response: obeys jl7 commands(6). Total: 15. Trauma Score (Adult): 15:49 Eye Response: spontaneous(1); Verbal Response: oriented(1); Motor Response: obeys ss commands(2); Systolic BP: > 89 mm Hg(4); Respiratory Rate: 10 to 29 per min(4); Harper Score: 15; Trauma Score: 12 17:07 Eye Response: spontaneous(1); Verbal Response: oriented(1); Motor Response: obeys jd3 commands(2); Systolic BP: > 89 mm Hg(4); Respiratory Rate: 10 to 29 per min(4); Job Score: 15; Trauma Score: 12 MDM: 16:01 Patient medically screened. [facility] 16:27 Differential diagnosis: abrasion, closed head injury, contusion, laceration, multiple gareth trauma, sprain, strain. Data reviewed: vital signs, nurses notes, EMS record, lab test result(s), EKG, radiologic studies, CT scan, plain films. Data interpreted: cafeteria monitor: rate is 78 beats/min, rhythm is regular, Pulse oximetry: on room air is 98 %. Test interpretation: by ED physician or midlevel provider: ECG, plain radiologic studies. Counseling: I had a detailed discussion with the patient and/or guardian regarding: the historical points, exam findings, and any diagnostic results supporting the discharge/admit diagnosis, lab results, radiology results. 08/30 16:06 Order name: Basic Metabolic Panel [facility] 08/30 16:06 Order name: CBC with Diff [facility] 08/30 16:06 Order name: LFT's [facility] 08/30 16:06 Order name: Magnesium [facility] 08/30 16:06 Order name: NT PRO-BNP [facility] 08/30 16:06 Order name: PT-INR [facility] 08/30 16:06 Order name: Troponin HS [facility] 08/30 16:06 Order name: XRAY Chest (1 view) [facility] 08/30 16:06 Order name: CT Facial Bones W/O Con [facility] 08/30 16:16 Order name: Thorax W/ Con [facility] 08/30 16:16 Order name: Abdomen [facility] 08/30 16:16 Order name: Head C Spine Mpr Wo Con [facility] 08/30 16:52 Order name: COVID-19 SARS RT PCR (Document "Date of Onset" if Symptomatic) jl7 08/30 16:06 Order name: EKG; Complete Time: 16:07 [facility] 08/30 16:06 Order name: Cardiac monitoring; Complete Time: 17:08 [facility] 08/30 16:06 Order name: EKG - Nurse/Tech; Complete Time: 17:08 [facility] 08/30 16:06 Order name: IV Saline Lock; Complete Time: 17:08 [facility] 08/30 16:06 Order name: Labs collected and sent; Complete Time: 17:08 [facility] 08/30 16:06 Order name: O2 Per Protocol; Complete Time: 17:08 [facility] 08/30 16:06 Order name: O2 Sat Monitoring; Complete Time: 17:08 [facility] 08/30 16:06 Order name: Ice pack; Complete Time: 17:03 [facility] 08/30 16:19 Order name: Hand Right 3 View XRAY [facility] 08/30 16:06 Order name: Wound Care; Complete Time: 17:03 [facility] 08/30 16:20 Order name: Ulnar Gutter splint: RIGHT HAND; Complete Time: 17:03 [facility] 08/30 16:20 Order name: Wound dressing; Complete Time: 17:03 [facility] EC:55 Rate is 73 beats/min. Rhythm is regular. QRS [place] is Normal. [place] interval is normal. QRS gareth interval is normal. QT interval is normal. No Q waves. T waves are Normal. No ST changes noted. Clinical impression: NSR w/ Non-specific ST/T Changes and No evidence of ischemia. Interpreted by me. Reviewed by me. Administered Medications: 16:45 Drug: Keppra (levETIRAcetam) 1000 mg Route: IV; Rate: per protocol; Site: left jd3 antecubital; 17:00 Follow up: Response: No adverse reaction; IV Status: Completed infusion jl7 17:18 Drug: NS 0.9% 500 ml Route: IV; Rate: bolus; Site: left antecubital; jd3 17:45 Follow up: Response: No adverse reaction; IV Status: Completed infusion; IV Intake: jl7 500ml 17:19 Drug: Labetalol 10 mg Route: IVP; Infused Over: 2 mins; Site: left antecubital; jd3 18:22 Follow up: Response: No adverse reaction; Blood pressure is lowered jl7 17:27 Drug: Tetanus-Diphtheria Toxoid Adult 0.5 ml {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 Exp: jd3 07/30/2023. Lot #: [id number]. } Route: IM; Site: left deltoid; 18:20 Follow up: Response: No adverse reaction jl7 17:29 Drug: Labetalol 20 mg Route: IVP; Infused Over: 2 mins; Site: left antecubital; jd3 18:22 Follow up: Response: No adverse reaction; Blood pressure is lowered jl7 17:43 Drug: Ancef (cefazolin) 1 grams Route: IVPB; Site: left antecubital; jd3 18:20 Follow up: IV Status: Infusion continued upon transfer jl7 17:43 Drug: NS 0.9% 1000 ml Route: IV; Rate: 125 ml/hr; Site: left antecubital; jd3 18:21 Follow up: IV Status: Infusion continued upon transfer jl7 Disposition Summary: 08/30/21 16:48 Transfer Ordered Transfer Location: [facility] gareth Reason: Higher level of care gareth Condition: Stable gareth Problem: new gareth Symptoms: have improved gareth Accepting Physician: TO TRAUMA(08/30/21 18:47) jl7 Diagnosis - Fall (on) (from) unspecified stairs and steps - 5 gareth - Contusion of other part of head - FOREHEAD, RIGHT ORBITAL gareth - Traumatic hemorrhage of right cerebrum with loss of consciousness of 30 minutes or gareth less, subsequent encounter - RIGHT FRONTAL - Multiple fractures of ribs, right side, initial encounter for closed fracture gareth - Displaced fracture of neck of fifth metacarpal bone, right hand gareth - Essential (primary) hypertension gareth Forms: - Medication Reconciliation Form gareth - SBAR form gareth Signatures: Dispatcher [employer] EDMS Kameron Alvarenga MD MD cha Smirch, Shelby, RN RN ss David Givens RN RN jl7 Star Cummings RN RN jd3 Corrections: (The following items were deleted from the chart) 16:16 16:11 Head C Spine CAP W Con+CT.RAD.BRZ ordered. [facility] EDVA 16:53 16:48 TO TRAUMA [facility] 17:10 16:53 TO TRAUMA [facility] 18:47 17:10 TO TRAUMA [facility]7
--- NOTE | 2021-08-30 16:49 | RAD REPORT ---
EXAM DESCRIPTION: CT - Thorax W/ Con - 08/30/2021 4:35 pm CLINICAL HISTORY: TRAUMA, fall with trauma COMPARISON: Facial Bones W/ Mpr dated 08/30/2021; Head C Spine Mpr Wo Con dated 08/30/2021; Abdomen Pelvis W Contrast dated 08/30/2021 TECHNIQUE: Dynamically enhanced 5 mm thick images of the chest were obtained during administration o f 100 mL non-ionic IV contrast. All CT scans are performed using dose optimization technique as appropriate and may include automated exposure control or mA/KV adjustment according to patient size. FINDINGS: No pulmonary contusion or acute lung parenchymal process seen. Minimal dependent atelectas is changes are present. No pleural thickening or pleural effusion. No pneumothorax. No chest wall mas s or abnormal axillary lymphadenopathy. No abnormal mediastinal or hilar mass or lymphadenopathy seen. Bilateral advanced shoulder joint degenerative changes are present. The posterior right eighth- tenth ribs are fractured without displacement. No other rib fractures confirmed. No sternum or scapula fra cture seen. Clavicle arm also fully imaged and show no acute finding. No thoracic spine compression fractures. IMPRESSION: Fractures of the posterior right 8th-10th ribs are present without displacement. No yonas ical contusion or pneumothorax.
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
[2021-08-30 16:57] LABS: Albumin 3.7 g/dL (3.4-5.0); Bilirubin Direct 0.1 mg/dL (0-0.2); Bilirubin Total 0.4 mg/dL (0.2-1.0); Magnesium 2.3 mg/dL (1.8-2.4); Potassium 3.8 mmol/L (3.5-5.1); Protein, Total 7.1 g/dL (6.4-8.2)
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
[2021-08-30] MEDS ORDERED: NA CHLORIDE 0.9% 100 ML IV ONE (17:16)
[2021-08-30] MEDS ORDERED: CEFAZOLIN SODIUM 1 GM/VIAL ONE (17:16)
[2021-08-30] MEDS ORDERED: TETANUS & DIPHTHERIA TOX,ADULT 0.5 ML VIAL ONE (17:17)
[2021-08-30] MEDS ORDERED: NA CHLORIDE 0.9% 1,000 ML ONE (17:17)
[2021-08-30] MEDS ORDERED: LABETALOL HCL 100 MG/20 ML ONE (17:18)
[2021-08-30 17:20] LABS: Troponin High Sensitivity 119.8 pg/mL (<58.9)
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
[2021-08-30] MEDS ORDERED: DERMABOND SKIN ADHESIVE TOP ONE (17:31)
[2021-08-31 00:31] VITALS: BP 170/96; O2SAT 98
--- NOTE | 2021-08-31 11:00 | EKG ---
Test Date: 2021-08-30 Test Time: 16:50:49 [employer]p [employer]anger: PERRY MEASUREMENT RESULTS: Intervals: Rate: 73 NM: 176 QRSD: 82 QT: 376 QTc: 414 [place]: P: 62 NM: 176 QRS: 44 T: 56 INTERPRETIVE STATEMENTS: Normal sinus rhythm Possible Anterior infarct, age undetermined Abnormal ECG No previous ECG available for comparison Electronically Signed On 08-31-21 10:57:21 CDT by Immanuel Bone
== END 2021-08-30 18:47 | disposition short-term general hospital (02) ==
LOC: ER 15:56
PROC: 2W3CX1Z Immobilization of Right Lower Arm using Splint (ICD-10-PCS; principal; 2021-08-30)
DX: S06.341A Traumatic hemorrhage of right cerebrum with loss of consciousness of 30 minutes or less, initial encounter (principal); S22.41XA Multiple fractures of ribs, right side, initial encounter for closed fracture; S62.336A Displaced fracture of neck of fifth metacarpal bone, right hand, initial encounter for closed fracture; I10 Essential (primary) hypertension; W10.9XXA Fall (on) (from) unspecified stairs and steps, initial encounter; Z20.822 Contact with and (suspected) exposure to COVID-19
CPT/HCPCS: 36415; 70450; 70486; 71045; 71260; 72125; 74177; 76377; 80048; 80076; 83735; 83880; 84484; 85025; 85610; 90471; 90714; 93005; 96365; 96375; 99285; J0690; J1953; J7030; Q9967; U0003

== ENCOUNTER 2021-09-06 10:46 | Emergency (ER) | payer OTHER, SELFPAY ==
--- OUTSIDE RECORDS SUMMARY | 2021-09-06 10:50 | XMS REPORT | Continuity of Care Document ---
:1950 Author Organization [facility] t Address [address] [place] [address] Care Team Providers Name Role Phone ISABELLA VELEZ Primary Care Physician Unavailable Valerie Catalan MD Attending Clinician Etienne KELLER Attending Clinician Unavailable Arianna AUSTIN S Attending Clinician Valerie CATALAN Attending Clinician Unavailable Abi GUZMAN Attending Clinician Unavailable Payers Payer Name Policy Type Policy Number Effective Date Expiration Date S dorian [employer] [id number] 2021 INS [employer] 00:00:00 [employer] [id number] 2021 (MEDICARE 00:00:00 REPLACEMENT HMO) Problems Condition Condition Condition Status Onset Resolution Last Treating Co mments Source Name Details Category Date Date Treatment Clinician Date No known No known Disease Unive rs active active ity of problems problems [facility] Allergies, Adverse Reactions, Alerts Allergy Allergy Status Severity Reaction(s) Onset Inactive Treating Comm ents Source Name Type Date Date Clinician NO KNOWN Drug Active Univers ALLERGIE Class ity of S [facility] Social History Social Habit Start Date Stop Date Quantity Comments Source History SDOH University o f Alcohol Frequency [place] [facility] History SDOH University o f Alcohol Std [place] [facility] Drinks Branch History SDOH University o f Alcohol Binge [place] [facility] Exposure to Not sure University of SARS-CoV-2 [place] [facility] (event) Branch Alcohol intake 2021-02-17 2021-02-17 Current drinker Unive rsity of 00:00:00 00:00:00 of alcohol [place] [facility] (finding) Branch Tobacco use and 2020-11-25 2020-11-25 Never used Universit y of exposure 00:00:00 00:00:00 [facility] Alcohol Comment 2020-11-25 2020-11-25 socially Universit y of 00:00:00 00:00:00 [facility] Sex [birth year] Universit y of 00:00:00 00:00:00 [facility] Smoking Status Start Date Stop Date Source Never smoker [facility] Medications Ordered Filled Start Stop Current Ordering Indication Dosage Frequency Signature Comments Components Source Medication Medication Date Date Medication? Clinician (SIG) Name Name cyclobenzap Yes TAKE 1 Univ ers rine 10 mg 7-01 TABLET BY ity of tablet 00:00: MOUTH AT [place] [address] BEDTIME Medical NEEDED Branch etodolac Yes 400mg Take 400 Univ ers 400 mg 7-01 mg by ity of tablet 00:00: mouth 2 [place] (two) Medical times Branch daily with meals. cyclobenzap Yes TAKE 1 Univ ers rine 10 mg 7-01 TABLET BY ity of tablet 00:00: MOUTH AT [place] BEDTIME Medical NEEDED Branch etodolac Yes 400mg Take 400 Univ ers 400 mg 7-01 mg by ity of tablet 00:00: mouth 2 [place] (two) Medical times Branch daily with meals. traMADoL 50 Yes TAKE 1 Univ ers mg tablet 6-27 TABLET BY ity o f 00:00: MOUTH [place] [address] EVERY 8 Medical HOURS Branch NEEDED traMADoL 50 Yes TAKE 1 Univ ers mg tablet 6-27 TABLET BY ity o f 00:00: MOUTH [place] EVERY 8 Medical HOURS Branch NEEDED tadalafiL Yes TAKE ONE Univ ers 20 mg 6-11 (1) ity of tablet 00:00: TABLET(S) BY MOUTH Medical ONCE A DAY Branch NEEDED. tadalafiL Yes TAKE ONE Univ ers 20 mg 6-11 (1) ity of tablet 00:00: TABLET(S) [place] BY MOUTH Medical ONCE A DAY Branch NEEDED. amLODIPine Yes 5mg Take 5 mg Un jeison 5 mg tablet 4-28 by mouth ity of 00:00: every [place] 00 morning. Medical Branch lisinopriL- 0 Yes 1{tbl} Take 1 Un jeison hydrochloro 4-28 tablet by ity of thiazide 00:00: mouth [place] 20-12.5 mg 00 every Medical per tablet morning. [facility] rosuvastati 0 Yes 5mg Take 5 mg U nivers n 5 mg 4-28 by mouth ity of tablet 00:00: every [place] 00 evening. Medical Branch amLODIPine 0 Yes 5mg Take 5 mg Un jeison 5 mg tablet 4-28 by mouth ity of 00:00: every [place] 00 morning. Medical Branch lisinopriL- 0 Yes 1{tbl} Take 1 Un jeison hydrochloro 4-28 tablet by ity of thiazide 00:00: mouth [place] 20-12.5 mg 00 every Medical per tablet morning. [facility] rosuvastati 0 Yes 5mg Take 5 mg U nivers n 5 mg 4-28 by mouth ity of tablet 00:00: every [place] 00 evening. Medical Branch metFORMIN 2020-0 Yes 500mg Take 500 Uni vers 500 mg 4-19 mg by ity of tablet 00:00: mouth [place] 00 daily. Medical Branch pravastatin 0 Yes 20mg Take 20 mg Univers 20 mg 4-19 by mouth ity of tablet 00:00: daily. Medical Branch metFORMIN 2020-0 Yes 500mg Take 500 Uni vers 500 mg 4-19 mg by ity of tablet 00:00: mouth [place] 00 daily. Medical Branch pravastatin 0 Yes 20mg Take 20 mg Univers 20 mg 4-19 by mouth ity of tablet 00:00: daily. [place] [facility] Immunizations Ordered Filled Immunization Date Status Comments [facility] e Immunization Name Name SARS-COV-2 COVID-19 2020-08-15 Completed Unive rsity of MODERNA VACCINE 00:00:00 [facility] SARS-COV-2 COVID-19 2020-08-15 Completed Unive rsity of MODERNA VACCINE 00:00:00 [facility] SARS-COV-2 COVID-19 2020-07-18 Completed Unive rsity of MODERNA VACCINE 00:00:00 [facility] SARS-COV-2 COVID-19 2020-07-18 Completed Unive rsity of MODERNA VACCINE 00:00:00 [facility] Vital Signs Vital Name Observation Time Observation Value Comments Source Systolic blood 2021-02-17 14:19:00 158 mm[Hg] Univer sity [facility] Diastolic blood 2021-02-17 14:19:00 81 mm[Hg] Unive rsity of [facility] Heart rate 2021-02-17 14:19:00 68 /min [facility] Body height 2021-02-17 14:19:00 170.2 cm [facility] Body weight 2021-02-17 14:19:00 77.111 kg [facility] BMI 2021-02-17 14:19:00 26.63 kg/m2 [facility] Procedures Procedure Date / Time Performed Performing Clinician Sourneda e XR TIBIA FIBULA 2 VW 2021-02-17 14:29:56 [facility] [place] En[facility] Start End Encounter Admission Attending Care Care Encounter Source Date/Time Date/Time Type Type Clinicians Facility Department ID 2021-09-02 Outpatient [facility] [id number] [place] 04:16:39 [id number] [facility] 2021-09-01 Outpatient [facility] [id number] [place] 07:27:40 [id number] [facility] 2021-08-31 Outpatient [facility] [id number] [place] 11:47:38 [id number] [facility] 2021-06-28 2021-06-28 Outpatient [facility] [id number] [facility] 08:00:00 08:00:00 [id number] [facility] 2021-04-03 2021-04-03 Outpatient [facility] [id number] [facility] 12:00:00 12:00:00 [id number] Medica l [facility] 2021-02-17 2021-02-17 [facility] MEY Catalan [id number] [facility] 09:15:00 23:59:00 Encounter Tamia Harrell [id number] ity mendez [place] [id number] Toney as Ney?Blea [id number] [place] [id number] Branch Medical [facility] 2021-02-17 2021-02-17 Outpatient Tiana ARIANNA [facility] [id number] Univers 09:30:00 09:30:00 ALBERT [id number] [facility] 2021-02-17 2021-02-17 [facility] [id number] Univers 09:30:00 09:30:00 [facility] 2021-02-17 2021-02-17 [facility] [id number] Univers 09:11:31 09:26:31 Visit Albert [facility] [id number] it y of [place] [id number] Toney as Ney?Blea [id number] Wa umer garcia [address] [facility] 2021-01-06 2021-01-06 Outpatient Tiana CATALAN [facility] [id number] Univers 10:15:00 23:59:00 TAMIA [facility] 2021-01-06 2021-01-06 Outpatient Tiana KELLER [facility] [id number] Univers 10:15:00 10:15:00 ALBERT [id number] [facility] 2020-11-25 2020-11-25 Outpatient ARIANNA [facility] [id number] Univers 14:08:07 23:59:00 [facility] 2020-11-25 2020-11-25 [facility] [id number] Univers 14:00:00 14:00:00 [facility] 2020-08-15 2020-08-15 Outpatient Tiana GUZMAN [facility] [id number] Univers 12:00:00 12:00:00 NICHELLE [facility] 2020-07-18 2020-07-18 Outpatient Tiana GUZMAN [facility] [id number] Univers 11:45:00 11:45:00 [facility] Results This patient has no known results.
--- NOTE | 2021-09-06 12:21 | RAD REPORT ---
EXAM DESCRIPTION: CT - Head Brain Wo Cont - 09/06/2021 11:58 am CLINICAL HISTORY: Headache, new or worsening Headache, drowsiness COMPARISON: Facial Bones W/ Mpr dated 08/30/2021; Head C Spine Mpr Wo Con dated 08/30/2021 TECHNIQUE: All CT scans are performed using dose optimization technique as appropriate and may inclu de automated exposure control or mA/KV adjustment according to patient size. FINDINGS: Small 6 mm area of cortical contusion right medial frontal lobe is again noted but appears less prominent. 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 The paranasal sinuses and mastoids are clear. The calvarium is intact. IMPRESSION: No new or progressed intracranial abnormality since 08/30/2021.
--- NOTE | 2021-09-06 12:22 | RAD REPORT ---
EXAM DESCRIPTION: RAD - Chest Pa And Lat (2 Views) - 09/06/2021 12:08 pm CLINICAL HISTORY: right rib pain Chest pain. COMPARISON: Chest Single View dated 08/30/2021; Thorax W/ Con dated 08/30/2021 FINDINGS: The lungs are emphysematous but clear. Trace right pleural effusion. The heart is normal i n size. The patient's known right-sided rib fractures are not well identified by plain radiograph.
--- NOTE | 2021-09-06 13:00 | EDPHYS ---
Physician Documentation [facility] Name: Nick Delgado Age: 71 yrs Sex: Male : 1950 Arrival Date: 09/06/2021 Time: 10:49 Bed Treatment Private MD: ED Physician Kendell Key HPI: 09/06 11:47 This 71 yrs old Male presents to ER via Ambulatory with complaints of Hand pm1 pain, Headache, Rib Pain. 11:47 71-year-old patient presenting to the ER with complaints of right hand pain, headache, pm1 right rib pain status post fall 1 week ago. Patient was sent to trauma facility and treated for right fifth metacarpal fracture, multiple right rib fractures, and right frontal lobe hematoma. Patient is presenting here to the ER with request for reevaluation of his injuries. Patient has follow-up appointment in 1 week. Severity of symptoms: in the emergency department the symptoms have improved. Historical: - Home Meds: 11:38 unknown BP med [Active]; iw - PMHx: 11:38 Hypertension; iw ROS: 11:47 Constitutional: Negative for fever, chills, and weight loss, Cardiovascular: Negative pm1 for chest pain, palpitations, and edema, Respiratory: Negative for shortness of breath, cough, wheezing, and pleuritic chest pain, Abdomen/GI: Negative for abdominal pain, nausea, vomiting, diarrhea, and constipation, Back: Negative for injury and pain. 11:47 Skin: Negative for injury, rash, and discoloration. 11:47 MS/extremity: Positive for Right hand pain. 11:47 Neuro: Positive for headache. 11:47 All other systems are negative. Exam: 11:47 Constitutional: This is a well developed, well nourished patient who is awake, alert, pm1 and in no acute distress. Head/Face: Normocephalic, atraumatic. Chest/axilla: Normal chest wall appearance and motion. Nontender with no deformity. No lesions are appreciated. Cardiovascular: Regular rate and rhythm with a normal S1 and S2. No gallops, murmurs, or rubs. Normal PMI, no JVD. No pulse deficits. Respiratory: Lungs have equal breath sounds bilaterally, clear to auscultation and percussion. No rales, rhonchi or wheezes noted. No increased work of breathing, no retractions or nasal flaring. Skin: Warm, dry with normal turgor. Normal color with no rashes, no lesions, and no evidence of cellulitis. MS/ Extremity: Pulses equal, no cyanosis. Neurovascular intact. Full, normal range of motion. 11:47 Neuro: Exam negative for acute changes, Orientation: is normal, Mentation: is normal, Motor: is normal, moves all fours. Vital Signs: 11:38 BP 217 / 91; Pulse 68; Resp 18; Temp 98.9; Pulse Ox 98% on R/A; iw 12:38 BP 160 / 83; ss MDM: 11:47 Patient medically screened. pm1 12:57 Data reviewed: vital signs. Data interpreted: Pulse oximetry: on room air is 98 %. pm1 Interpretation: normal. Counseling: I had a detailed discussion with the patient and/or guardian regarding: the historical points, exam findings, and any diagnostic results supporting the discharge/admit diagnosis, radiology results, the need for outpatient follow up, to return to the emergency department if symptoms worsen or persist or if there are any questions or concerns that arise at home. 12:57 ED course: No compartment syndrome present to right hand. Splint was dirty, therefore pm1 splint padding and Anival wrap was replaced and reapplied to patient. 04 11:46 Order name: CT Head Brain wo Cont; Complete Time: 12:27 pm1 04 11:46 Order name: Chest Pa And Lat (2 Views) XRAY; Complete Time: 12:27 pm1 Administered Medications: 13:20 Drug: HYDROcodone-acetaminophen 5 mg-325 mg 1 tabs Route: PO; ss 13:31 Follow up: Response: No adverse reaction; Medication administered at discharge. ss Disposition Summary: 09/06/21 12:59 Discharge Ordered Location: Home pm1 Problem: new pm1 Symptoms: have improved pm1 Condition: Stable pm1 Diagnosis - Headache pm1 - Pain in right hand pm1 - Right rib pain pm1 Followup: pm1 - With: Emergency Department - When: As needed - Reason: Worsening of condition Followup: pm1 - With: Private Physician - When: 2 - 3 days - Reason: Recheck today's complaints, Continuance of care, Re-evaluation by your physician Discharge Instructions: - Discharge Summary Sheet pm1 - Cast or Splint Care, Adult pm1 - General Headache Without Cause pm1 - Rib Fracture pm1 - Hand Pain pm1 Forms: - Medication Reconciliation Form pm1 - Thank You Letter pm1 - Antibiotic Education pm1 - Prescription Opioid Use pm1 Addendum: 09/08/2021 18:35 Co-signature as Attending Physician, Kendell amato a2 Signatures: Dispatcher [employer] Maria Elena Rees RN RN iw Smirch, Shelby, RN RN ss Tommy Gonzalez, MARKETING FINANCE MANAGER MARKETING FINANCE MANAGER pm1 Kendell Key MD MD ma2
--- NOTE | 2021-09-06 13:00 | ER ---
Nurse's Notes [facility] Name: Nick Delgado Age: 71 yrs Sex: Male : 1950 Arrival Date: 09/06/2021 Time: 10:49 Bed Treatment Private MD: Diagnosis: Headache;Pain in right hand;Right rib pain Presentation: 09/06 11:35 Chief complaint: Patient's son or daughter states: has a broken finger and hand and has iw broken ribs, was seen here last week for a fall, is still having pian in his hand and pain in ribs. 11:35 Method Of Arrival: Ambulatory iw 11:38 Coronavirus screen: At this time, the client does not indicate any symptoms associated iw with coronavirus-19. Ebola Screen: Patient negative for fever greater than or equal to 101.5 degrees Fahrenheit, and additional compatible Ebola Virus Disease symptoms Patient denies exposure to infectious person. Patient denies travel to an Ebola-affected area in the 21 days before illness onset. No symptoms or risks identified at this time. Initial Sepsis Screen: Does the patient meet any 2 criteria? No. Patient's initial sepsis screen is negative. Does the patient have a suspected source of infection? No. Patient's initial sepsis screen is negative. Risk Assessment: Do you want to hurt yourself or someone else? Patient reports no desire to harm self or others. Onset of symptoms was September 06, 2021. 11:38 Acuity: KYLER 3 iw Historical: - Home Meds: 11:38 unknown BP med [Active]; iw - PMHx: 11:38 Hypertension; iw Screenin:15 Abuse screen: Denies threats or abuse. Denies injuries from another. Nutritional iw screening: No deficits noted. Tuberculosis screening: No symptoms or risk factors identified. Assessment: 12:15 General: Appears in no apparent distress. Behavior is calm, cooperative. Pain: iw Complains of pain in right hand. Neuro: Level of Consciousness is awake, alert, obeys commands, Oriented to person, place, time, situation. Vital Signs: 11:38 BP 217 / 91; Pulse 68; Resp 18; Temp 98.9; Pulse Ox 98% on R/A; iw 12:38 BP 160 / 83; ss ED Course: 10:49 Patient arrived in ED. mr 11:36 Tommy Gonzalez NP is PHCP. pm1 11:36 Kendell Key MD is Attending Physician. pm1 11:38 Triage completed. iw 12:00 CT Head Brain wo Cont In Process Unspecified. EDMS 12:09 Chest Pa And Lat (2 Views) XRAY In Process Unspecified. EDMS 12:13 Ceci Gerber, RN is Primary Nurse. ss 13:30 No provider procedures requiring assistance completed. Patient did not have IV access ss during this emergency room visit. Administered Medications: 13:20 Drug: HYDROcodone-acetaminophen 5 mg-325 mg 1 tabs Route: PO; ss 13:31 Follow up: Response: No adverse reaction; Medication administered at discharge. ss Outcome: 12:59 Discharge ordered by MD. pm1 13:30 Discharged to home ambulatory, with family. ss 13:30 Condition: good 13:30 Discharge instructions given to patient, Instructed on discharge instructions, follow up and referral plans. Demonstrated understanding of instructions, follow-up care. 13:30 Patient left the ED. ss Signatures: Dispatcher [employer] [facility] Fay Bear Maria Elena Shabazz RN RN Ceci Gerber RN RN ss Tommy Gonzalez NP HAIRSPRING STUDDER pm1
[2021-09-06] MEDS ORDERED: HYDROCODONE/APAP 5/325 MG TAB ONE (13:20)
[2021-09-06 18:23] VITALS: TEMP 98.9; O2SAT 98
[2021-09-06 18:24] VITALS: BP 160/83
== END 2021-09-06 13:30 | disposition home or self-care (01) ==
LOC: ER 10:46
DX: R51.9 Headache, unspecified (principal); S62.306G Unspecified fracture of fifth metacarpal bone, right hand, subsequent encounter for fracture with delayed healing; S22.41XG Multiple fractures of ribs, right side, subsequent encounter for fracture with delayed healing; I10 Essential (primary) hypertension
CPT/HCPCS: 70450; 71046; 99283

== ENCOUNTER 2021-10-05 09:32 | Emergency (ER) | payer OTHER ==
--- OUTSIDE RECORDS SUMMARY | 2021-10-05 09:35 | XMS REPORT | Continuity of Care Document ---
:1950 Author Organization [facility] t Address [address] [place] [address] Care Team Providers Name Role Phone Unknown, Physician Primary Care Physician Unavailable RAFAELA DISLA Attending Clinician Unavailable RAFAELA DISLA Attending Clinician Unavailable CLIFFORD COOK Attending Clinician Unavailable Valerie Catalan MD Attending Clinician Etienne SANCHEZ Attending Clinician Unavailable Etienne Jensen Attending Clinician Valerie CATALAN Attending Clinician Unavailable Abi GUZMAN Attending Clinician Unavailable VALDEZ COOK Admitting Clinician Unavailable Payers Payer Name Policy Type Policy Number Effective Date Expiration Date S shawnkatrin [facility] [id number] 2021 INS [employer] 00:00:00 [employer] [id number] 2021 (MEDICARE 00:00:00 REPLACEMENT HMO) Problems Condition Condition Condition Status Onset Resolution Last Treating Co mments Source Name Details Category Date Date Treatment Clinician Date Fall Fall Disease Active [facility] 4-12 [facility] 00:00: 00 Closed Closed Disease Active [place] fracture fracture 08-30 Health of of 00:00: multiple multiple 00 ribs of ribs of right side right side with with routine routine healing healing No known No known Disease Unive rs active active ity of problems problems [facility] Allergies, Adverse Reactions, Alerts Allergy Allergy Status Severity Reaction(s) Onset Inactive Treating Comm ents Source Name Type Date Date Clinician NO KNOWN Drug Active Univers ALLERGIE Class ity of S [facility] Social History Social Habit Start Date Stop Date Quantity Comments Source History SDOH University o f Alcohol Std [place] [facility] Drinks Branch History SDOH University o f Alcohol Binge [place] [facility] Exposure to Not sure [place] [facility] SARS-CoV-2 (event) History SDNE University o f Alcohol Frequency [facility] edical Branch Alcohol intake 2021-09-23 2021-09-23 Lifetime [place] [facility] 00:00:00 00:00:00 non-drinker (finding) Tobacco use and 2021-09-16 2021-09-16 Smokeless tobacco [place] [facility] exposure 00:00:00 00:00:00 non-user Alcohol Comment 2020-11-25 2020-11-25 socially Universit y of 00:00:00 00:00:00 [facility] Sex Assigned At [birth year] [place] [facility] 00:00:00 00:00:00 Smoking Status Start Date Stop Date Source Never smoked tobacco [facility] Medications Ordered Filled Start Stop Current Ordering Indication Dosage Frequency Signature Comments Components Source Medication Medication Date Date Medication? Clinician (SIG) Name Name traMADol 2021- No 50mg Q6H Take 50 mg [facility] (Ultram) 50 5-12 05-12 by mouth Hea lth MG tablet 14:53: 00:00 every 6 49 :00 (six) hours. traMADol 2021- Yes [id number] 50mg Q6H Take 1 U T (Ultram) 50 5-12 05-18 tablet (50 H ealth MG tablet 00:00: 04:59 mg total) 00 :00 by mouth every 6 (six) hours if needed for severe pain for up to 5 days. acetaminoph Yes 500mg Q6H Take 500 U T en 5-06 mg by Health (Tylenol) 09:04: mouth 500 MG 02 every 6 tablet (six) hours if needed. gabapentin 0 Yes 300mg Q8H Take 300 [facility] (Neurontin) 5-06 mg by Health 300 MG 09:04: mouth capsule 02 every 8 (eight) hours. methocarbam Yes 500mg Take 500 U T ol 5-06 mg by Health (Robaxin) 09:04: mouth 500 MG 02 every 8 tablet (eight) hours if needed. naproxen 2022-0 Yes 500mg Q.5D Take 500 UT (Naprosyn) 5-06 mg by [facility] 500 MG 09:04: mouth 2 tablet 02 (two) times a day if needed. amLODIPine- 2-0 Yes 1{tbl} QD Take 1 UT atorvastati 5-06 tablet by [facility] n (Caduet) 09:04: mouth 1 5-10 MG 02 (one) time tablet each day. lisinopril- 2-0 Yes 1{tbl} QD Take 1 UT hydroCHLORO 5-06 tablet by [facility] thiazide 09:04: mouth 1 20-12.5 MG 02 (one) time tablet each day. metFORMIN 2021-0 Yes 500mg QD Take 500 UT XR 5-06 mg by [facility] (Glucophage 09:04: mouth 1 -XR) 500 MG 02 (one) time 24 hr each day. tablet Do not crush, chew, or split. rosuvastati 2021-0 Yes 5mg QD Take 5 mg U T n (Crestor) 5-06 by mouth 1 He alth 5 MG tablet 09:04: (one) time 02 each day. levETIRAcet 2021-0 Yes 1{tbl} Q12H Take 1 UT am (Keppra) 4-29 tablet by [facility] 1000 MG 10:17: mouth tablet 12 every 12 (twelve) hours. cyclobenzap 2020-0 Yes TAKE 1 Univ ers rine 10 mg 7-01 TABLET BY ity of tablet 00:00: MOUTH AT [place] [address] BEDTIME Medical NEEDED Branch etodolac 2020-0 Yes 400mg Take 400 Univ ers 400 mg 7-01 mg by ity of tablet 00:00: mouth 2 [place] (two) Medical times Branch daily with meals. cyclobenzap 2020-0 Yes TAKE 1 Univ ers rine 10 mg 7-01 TABLET BY ity of tablet 00:00: MOUTH AT [place] 00 BEDTIME Medical NEEDED Branch etodolac 2020-0 Yes 400mg Take 400 Univ ers 400 mg 7-01 mg by ity of tablet 00:00: mouth 2 [place] (two) Medical times Branch daily with meals. traMADoL 50 2021-0 Yes TAKE 1 Univ ers mg tablet 6-27 TABLET BY ity o f 00:00: MOUTH [place] 00 EVERY 8 Medical HOURS Branch NEEDED traMADoL 50 Yes TAKE 1 Univ ers mg tablet 6-27 TABLET BY ity o f 00:00: MOUTH [place] 00 EVERY 8 Medical HOURS Branch NEEDED tadalafiL Yes TAKE ONE Univ ers 20 mg 6-11 (1) ity of tablet 00:00: TABLET(S) [place] 00 BY MOUTH Medical ONCE A DAY Branch NEEDED. tadalafiL Yes TAKE ONE Univ ers 20 mg 6-11 (1) ity of tablet 00:00: TABLET(S) [place] 00 BY MOUTH Medical ONCE A DAY Branch NEEDED. amLODIPine Yes 5mg Take 5 mg Un jeison 5 mg tablet 4-28 by mouth ity of 00:00: every [place] 00 morning. Medical Branch lisinopriL- Yes 1{tbl} Take 1 Un jeison hydrochloro 4-28 tablet by ity of thiazide 00:00: mouth [place] 20-12.5 mg 00 every Medical per tablet morning. [place] [facility] h rosuvastati Yes 5mg Take 5 mg U nivers n 5 mg 4-28 by mouth ity of tablet 00:00: every [place] 00 evening. Medical Branch amLODIPine Yes 5mg Take 5 mg Un jeison 5 mg tablet 4-28 by mouth ity of 00:00: every [place] 00 morning. Medical Branch lisinopriL- Yes 1{tbl} Take 1 Un jeison hydrochloro 4-28 tablet by ity of thiazide 00:00: mouth [place] 20-12.5 mg 00 every Medical per tablet morning. [facility] h rosuvastati Yes 5mg Take 5 mg U nivers n 5 mg 4-28 by mouth ity of tablet 00:00: every [place] 00 evening. Medical Branch metFORMIN Yes 500mg Take 500 Uni vers 500 mg 4-19 mg by ity of tablet 00:00: mouth [place] 00 daily. Medical Branch pravastatin Yes 20mg Take 20 mg Univers 20 mg 4-19 by mouth ity of tablet 00:00: daily. [place] 00 Medical Branch metFORMIN Yes 500mg Take 500 Uni vers 500 mg 4-19 mg by ity of tablet 00:00: mouth [place] 00 daily. Medical Branch pravastatin Yes 20mg Take 20 mg Univers 20 mg 4-19 by mouth ity of tablet 00:00: daily. [address] Immunizations Ordered Filled Immunization Date Status Comments [facility] e Immunization Name Name SARS-COV-2 COVID-19 2020-08-15 Completed Unive rsity of MODERNA VACCINE 00:00:[address] [facility] SARS-COV-2 COVID-19 2020-08-15 Completed Unive rsity of MODERNA VACCINE 00:00:[address] [facility] SARS-COV-2 COVID-19 2020-07-18 Completed Unive rsity of MODERNA VACCINE 00:00:[address] [facility] SARS-COV-2 COVID-19 2020-07-18 Completed Unive rsity of MODERNA VACCINE 00:00:[address] [facility] Vital Signs Vital Name Observation Time Observation Value Comments Source Systolic blood 2021-09-23 14:02:00 202 mm[Hg] [facility] pressure Diastolic blood 2021-09-23 14:02:00 93 mm[Hg] [facility] pressure Heart rate 2021-09-23 14:02:00 69 /min [facility] Body temperature 2021-09-23 14:02:00 36.83 Cathie [facility] Body height 2021-09-23 14:02:00 170.2 cm [facility] Body weight 2021-09-23 14:02:00 80.74 kg [facility] BMI 2021-09-23 14:02:00 27.88 kg/m2 [facility] Systolic blood 2021-02-17 14:19:00 158 mm[Hg] Univer sity of pressure [facility] Diastolic blood 2021-02-17 14:19:00 81 mm[Hg] Unive rsity of pressure [facility] Heart rate 2021-02-17 14:19:00 68 /min [facility] Body height 2021-02-17 14:19:[address] [facility] Body weight 2021-02-17 14:19:[address] [facility] BMI 2021-02-17 14:19:00 26.63 kg/m2 [facility] Procedures Procedure Date / Time Performed Performing Clinician Sourc e XR TIBIA FIBULA 2 VW 2021-02-17 14:29:56 [facility] Catalan [facility] Encounters Start End Encounter Admission Attending Care Care Encounter Source Date/Time Date/Time Type Type Clinicians Facility Department ID 2021-10-03 Outpatient [facility] [id number] [place] 09:23:18 [id number] Health 2021-09-30 Outpatient [facility] [id number] [place] 09:20:02 [facility] [id number] Healt h RAFAELA 2021-09-29 2021-09-29 [facility] [id number] [facility] 09:32:00 23:59:00 RAFAELA HINES 2021-09-23 2021-09-23 Office [facility] 6410 [id number] [place] 09:00:00 09:46:08 [id number] [id number] 2021-08-30 2021-09-01 Inpatient E [id number] [facility] 22:57:00 12:30:00 CLIFFORD 2021-06-28 2021-06-28 [facility] [id number] [facility] 08:00:00 08:00:00 [id number] [facility] 2021-04-03 2021-04-03 [facility] [id number] [facility] 12:00:00 12:00:00 1114 Medica l Group 2021-02-17 2021-02-17 [facility] [id number] [facility] 09:15:00 23:59:00 Encounter Tamia Padilla [facility] [id number] Amy [id number] Toney as Ney?Blea [id number] Pr umer garcia 9 [facility] 2021-02-17 2021-02-17 Outpatient Tiana SANCHEZ [facility] [id number] [facility] 09:30:00 09:30:00 ALBERT [id number] [facility] 2021-02-17 2021-02-17 Outpatient Tiana SANCHEZ [facility] [id number] Univers 09:30:00 09:30:00 [facility] 2021-02-17 2021-02-17 [facility] [id number] Univers 09:11:31 09:26:31 Visit Albert [facility] [id number] it y of [place] [id number] Toney as Ney?Blea [id number] Pr dical [address] Medical Office Building 2021-01-06 2021-01-06 Outpatient Tiana CATALAN [facility] [id number] Univers 10:15:00 23:59:00 TAMIA [facility] 2021-01-06 2021-01-06 [facility] [id number] Univers 10:15:00 10:15:00 ALBERT [id number] [facility] 2020-11-25 2020-11-25 [facility] [id number] Univers 14:08:07 23:59:00 [facility] 2020-11-25 2020-11-25 Outpatient Tiana SANCHEZ [facility] [id number] Univers 14:00:00 14:00:00 [facility] 2020-08-15 2020-08-15 Outpatient Tiana GUZMAN [facility] [id number] Univers 12:00:00 12:00:00 NICHELLE [facility] 2020-07-18 2020-07-18 Outpatient Tiana GUZMAN [facility] [id number] Univers 11:45:00 11:45:00 [facility] Results This patient has no known results.
--- NOTE | 2021-10-05 10:15 | EDPHYS ---
Physician Documentation [facility] Name: Nick Delgado Age: 71 yrs Sex: Male : 1950 Arrival Date: 10/05/2021 Time: 09:37 Bed 11 Private MD: Stan Moody T ED Physician Matthew Galvan HPI: 10/05 09:58 This 71 yrs old Male presents to ER via Ambulatory with complaints of rewrap cp arm/numbness of finger. 09:58 The complaints affect the fifth metacarpal right hand. cp 09:58 Context: history of surgery with hardware placement last . Patient complains cp that wrapping of splint is unraveling and too tight. C/o numbness of right fifth finger. Historical: - Allergies: 09:50 No Known Allergies; ap3 - Home Meds: 09:50 unknown BP med [Active]; ap3 - PMHx: 09:50 Hypertension; ap3 - Immunization history:: Client reports receiving the 2nd dose of the Covid vaccine. - Social history:: Smoking status: Patient denies any tobacco usage or history of. ROS: 10:05 All other systems are negative. cp Exam: 10:06 Head/Face: Normocephalic, atraumatic. cp 10:06 Constitutional: The patient appears in no acute distress, alert, awake, non-toxic, well developed, well nourished. 10:06 Chest/axilla: Inspection: normal. 10:06 Cardiovascular: Rate: normal, Pulses: Pulses are 2+ in right radial artery. 10:06 Respiratory: the patient does not display signs of respiratory distress, Respirations: normal, no use of accessory muscles, no retractions, labored breathing, is not present. 10:06 Abdomen/GI: Exam negative for discomfort, distension, guarding, Inspection: abdomen appears normal. 10:06 Musculoskeletal/extremity: Extremities: noted in the surgical wound dorsum right hand fifth metacarpal: There is no evidence of erythema, mild swelling, skin warm and dry, sutures intact, Perfusion: the extremity is with brisk capillary refill, the right fifth finger Sensation intact. Vital Signs: 09:53 BP 163 / 71; Pulse 76; Resp 17; Temp 98.5; Weight 80.74 kg; Height 5 ft. 7 in. (170.18 ap3 cm); 09:53 Body Mass Index 27.88 (80.74 kg, 170.18 cm) ap3 Procedures: 10:20 Splinting: Splint applied to right hand using Orthoglass splint, ulna gutter type. cp applied by tech. Examined by me, post splint application: neurovascular intact, Patient tolerated well. MDM: 10:14 Patient medically screened. cp 10:14 Differential diagnosis: cellulitis, compartment syndrome. cp 10:14 Data reviewed: vital signs, nurses notes, and as a result, I will discharge patient. cp Counseling: I had a detailed discussion with the patient and/or guardian regarding: the historical points, exam findings, and any diagnostic results supporting the discharge/admit diagnosis, the need for outpatient follow up, with surgeon as scheduled, to return to the emergency department if symptoms worsen or persist or if there are any questions or concerns that arise at home. Response to treatment: the patient's symptoms have markedly improved after treatment, and as a result, I will discharge patient. 10/05 10:12 Order name: Splint - Ulnar Gutter; Complete Time: 10:12 mh5 10/05 10:12 Order name: Sling; Complete Time: 10:12 mh5 Administered Medications: No medications were administered Disposition: 16:07 Co-signature as Attending Physician, Matthew Galvan DO I was immediately available on-site ms3 in the Emergency Department for consultation in the care of the patient.. Disposition Summary: 10/05/21 10:14 Discharge Ordered Location: Home cp Problem: new cp Symptoms: have improved cp Condition: Stable cp Diagnosis - Encounter for change or removal of surgical wound dressing cp Followup: cp - With: Private Physician - When: as scheduled - Reason: Wound Recheck Discharge Instructions: - Discharge Summary Sheet cp - Cast or Splint Care, Adult cp - Wound Care, Adult cp Forms: - Medication Reconciliation Form cp - Thank You Letter cp - Antibiotic Education cp - Prescription Opioid Use cp Signatures: Kameron Colon PA PA cp Martinez, Maria 5 Anika Sigala RN RN ap3 Matthew Glavan DO DO ms3
--- NOTE | 2021-10-05 10:15 | ER ---
Nurse's Notes [facility] Name: Nick Delgado Age: 71 yrs Sex: Male : 1950 Arrival Date: 10/05/2021 Time: 09:37 Bed 11 Private MD: Stan Moody T Diagnosis: Encounter for change or removal of surgical wound dressing Presentation: 10/05 09:48 Chief complaint: Patient states: he had surgery for a broken hand September 292021. Patient informed triage nurse that the provider who performed his sx, told him to go to the hospital to get it re-wrapped if the bandage started to come off. patient states the bandage is coming off, and he is experiencing numbness and tingling in his right fingers. Coronavirus screen: At this time, the client does not indicate any symptoms associated with coronavirus-19. Ebola Screen: No symptoms or risks identified at this time. Initial Sepsis Screen:. Onset of symptoms was October 05, 2021. 09:48 Method Of Arrival: Ambulatory ap3 09:51 Risk Assessment: Do you want to hurt yourself or someone else? Patient reports no ap3 desire to harm self or others. 09:53 Initial Sepsis Screen: Does the patient meet any 2 criteria? No. Patient's initial ap3 sepsis screen is negative. Does the patient have a suspected source of infection? No. Patient's initial sepsis screen is negative. 09:53 Acuity: KYLER 4 ap3 Triage Assessment: 09:50 General: Appears in no apparent distress. Behavior is calm, cooperative. Pain: Denies ap3 pain. Neuro: Level of Consciousness is awake, alert, obeys commands, Oriented to person, place, time, situation. Cardiovascular: Patient's skin is warm and dry. Respiratory: Airway is patent Respiratory effort is even, unlabored. Derm: Wound noted right hand. Musculoskeletal: Reports numbness in right hand. Historical: - Allergies: 09:50 No Known Allergies; ap3 - Home Meds: 09:50 unknown BP med [Active]; ap3 - PMHx: 09:50 Hypertension; ap3 - Immunization history:: Client reports receiving the 2nd dose of the Covid vaccine. - Social history:: Smoking status: Patient denies any tobacco usage or history of. Screenin:51 Abuse screen: Denies threats or abuse. Nutritional screening: No deficits noted. ap3 Tuberculosis screening: No symptoms or risk factors identified. Fall Risk None identified. Vital Signs: 09:53 BP 163 / 71; Pulse 76; Resp 17; Temp 98.5; Weight 80.74 kg; Height 5 ft. 7 in. (170.18 ap3 cm); 09:53 Body Mass Index 27.88 (80.74 kg, 170.18 cm) ap3 ED Course: 09:37 Patient arrived in ED. am2 09:38 Stan Moody MD is Private Physician. am2 09:43 Kameron Colon PA is PHCP. cp 09:43 Matthew Galvan DO is Attending Physician. cp 09:51 Arm band placed on left wrist. ap3 09:52 Patient has correct armband on for positive identification. Adult w/ patient. ap3 09:54 Triage completed. ap3 10:07 Orthoglass splint: Ulnar gutter/Boxer splint applied on right forearm. mh5 10:16 Sling applied to right arm. mh5 10:22 No provider procedures requiring assistance completed. Patient did not have IV access ap3 during this emergency room visit. Administered Medications: No medications were administered Medication: 09:51 VIS not applicable for this client. ap3 Outcome: 10:14 Discharge ordered by . cp 10:22 Discharged to home ambulatory. ap3 10:22 Condition: good 10:22 Discharge instructions given to patient, Instructed on discharge instructions, follow up and referral plans. Demonstrated understanding of instructions, follow-up care. 10:22 Patient left the ED. ap3 Signatures: Kameron Colon PA PA cp Martinez, Maria Anika Fletcher Amanda, RN RN ap3
[2021-10-05 10:27] VITALS: BP 163/71; TEMP 98.5
== END 2021-10-05 10:22 | disposition home or self-care (01) ==
LOC: ER 09:32
PROC: 2W3CX1Z Immobilization of Right Lower Arm using Splint (ICD-10-PCS; principal; 2021-10-05)
DX: Z48.01 Encounter for change or removal of surgical wound dressing (principal); R20.0 Anesthesia of skin
CPT/HCPCS: 99283

== ENCOUNTER 2024-05-07 08:43 | Day surgery (SDC) | payer MEDICARE ==
[2024-05-05 10:52] LABS: Absolute Lymphocytes (CBC) 1.1 K/uL (0.7-4.9); Absolute Monocytes 0.3 K/uL (0.1-1.3); Absolute Neutrophil 4.3 K/uL (1.8-8.0); Basophils % 0.5 % (0-1.3); Eosinophils % 0.5 % (0-4.4); Hematocrit 41.5 % (39.6-49.0); Hemoglobin 13.8 g/dL (13.6-17.9); Lymphocytes % 18.9 % (15.3-44.8); MCHC 33.3 g/dL (32.0-36.0); MCV 84.1 fL (80-100); MPV 7.8 fL (7.6-11.3); Monocytes % 5.9 % (3.3-12.3); Neutrophils % 74.2 % (41.7-73.7); Platelets 351 thou/uL (152-406); RBC Red Blood Cell Count 4.94 M/uL (4.33-5.43); Red Cell Distribution Width 14.8 % (12.1-15.2)
--- NOTE | 2024-05-05 11:02 | RAD REPORT ---
EXAM: Chest Pa And Lat (2 Views) HISTORY: Pre-op pending trigger finger release, hypertension, diabetes COMPARISON: 09/06/2021 FINDINGS: LUNGS/PLEURA: The lungs are clear. No pleural effusions or pneumothorax. No pulmonary edema. MEDIASTINUM: The mediastinal silhouette is within normal limits. CARDIAC: The cardiac silhouette is within normal limits. UPPER ABDOMEN: No significant abnormality. BONES: No acute fracture. LINES/TUBES/OTHER: N/A IMPRESSION: No evidence of acute cardiopulmonary disease.
[2024-05-05 11:04] LABS: PT Prothrombin Time 11.4 SECONDS (9.4-12.5); PTT, Activated Partial Thromb 32.8 SECONDS (24.3-36.9); Protime INR 1.02
[2024-05-05 11:05] LABS: Anion Gap 9.7 mEq/L (5.0-15.0); Potassium 3.7 mEq/L (3.5-5.1)
--- NOTE | 2024-05-06 11:58 | EKG ---
Test Date: 2024-05-05 Test Time: 11:11:00 Director Multimedia: DIONNE MEASUREMENT RESULTS: Intervals: Rate: 72 CT: 178 QRSD: 82 QT: 382 QTc: 418 Saunemin: P: 57 CT: 178 QRS: 49 T: 73 INTERPRETIVE STATEMENTS: Normal sinus rhythm Normal ECG Compared to ECG 08/30/2021 16:50:49 Myocardial infarct finding no longer present Electronically Signed On 05-06-24 11:56:43 [employer] by Rufus Nagy
[2024-05-07] MEDS ORDERED: NA CHLORIDE 0.9% 1,000 ML ONE (09:01)
[2024-05-07] MEDS ORDERED: FENTANYL CITR 100 MCG/2 ML ONE (09:11)
[2024-05-07] MEDS ORDERED: LIDOCAINE 1% MPF 5 ML VIAL ONE (09:11)
[2024-05-07] MEDS ORDERED: propofoL 200 MG/20 ML VIAL IV ONE (09:11)
[2024-05-07] MEDS ORDERED: KETOROLAC 30 MG/ML INJ ONE (09:11)
[2024-05-07] MEDS ORDERED: MIDAZOLAM HCL 2 MG/2 ML INJ ONE (09:11)
[2024-05-07] MEDS ORDERED: dexAMETHasone 4 MG/ML VIAL ONE (11:03)
[2024-05-07] MEDS ORDERED: ONDANSETRON 4 MG/2 ML VIAL ONE (11:03)
[2024-05-07] MEDS ORDERED: GLYCOPYRROLATE 0.2 MG/ML SYR ONE (11:05)
[2024-05-07] MEDS: CEFAZOLIN SODIUM 1 GM/VIAL ONE (11:07)
[2024-05-07] MEDS: BUPIVACAINE 0.25% PF 10 ML VIAL ONE (11:12)
--- NOTE | 2024-05-07 11:33 | P.BOP ---
Preoperative diagnosis: Right small finger trigger digit Postoperative diagnosis: Same Primary procedure: Right small finger A1 vilma release Roller Turner: General Estimated blood loss: 2 cc Specimen: None Findings: See dictation Anesthesia: General Complications: None Implants: None Fluids & blood products: Per anesthesia record; tourniquet time 11 minutes at 250 mmHg Transferred to: Recovery Room Condition: Good
--- NOTE | 2024-05-07 11:38 | P.OP ---
Preoperative diagnosis: Right small finger trigger digit Postoperative diagnosis: Same Primary procedure: Right small finger A1 vilma release Anesthesia: General Estimated blood loss: 2 cc Specimen: None Findings: See dictation Operative Technique: Indication procedure: Patient is a 74-year-old male presented to clinic with signs symptoms and physical exam findings consistent with a trigger digit. Patient failed conservative treatment measures including corticosteroid injection. Given the continued pain and difficulties with activities of daily living and elected proceed with operative treatment including A1 vilma release. Description of procedure: After informed consent was obtained, the patient was identified in the preoperative holding area and the right small finger was marked. Patient was then brought back to the operating room, transferred to the operating table in supine fashion and placed under general anesthesia. The right upper extremity was then prepped and draped in usual sterile fashion. A timeout was initiated. The correct patient and procedure were confirmed and identified. The patient did receive his preoperative prophylactic antibiotics. The right upper extremity was exsanguinated using an Esmarch and the tourniquet was inflated to 250 mmHg. Approximately 1.5 cm longitudinal incision was made over the A1 vilma of the small finger. Dissection was then taken down the flexor tendon sheath. It was split in line with the incision. A small portion of the flexor tendon sheath was excised to minimize risk of recurrence. The flexor tendon was then brought out through the incision and there was full excursion of the tendon without triggering noted. The wound was then irrigated thoroughly with normal saline. The skin is approximately using a 5-0 Prolene. Sterile dressings were applied. The tourniquet was let down and the patient was awakened and transferred to PACU in stable condition. Postoperative plan: The patient will follow-up in my clinic in 10 days for wound check and suture removal. The patient will be nonweightbearing of his right upper extremity. Complications: None Implants: None Fluids & blood products: Per anesthesia record; tourniquet time 11 minutes at 250 mmHg Transferred to: Recovery Room Condition: Good
[2024-05-07 14:26] VITALS: BP 164/74; TEMP 98.7; O2SAT 98
== END 2024-05-07 12:52 | disposition home or self-care (01) ==
LOC: OR 08:43
PROVIDERS: ATTEND Orthopaedic Surgery Sports Medicine
PROC: 0LN70ZZ Release Right Hand Tendon, Open Approach (ICD-10-PCS; principal; 2024-05-07 10:45)
DX: M65.351 Trigger finger, right little finger (principal)
CPT/HCPCS: 93005; 85025; 80048; 36415; 85610; 82947 ×2; 85730; 71046; 26055; J2704; J1100; J2003; J3010; J2405; J7030; J0690; J2250